=== PATIENT | male | born 1955 ===

== ENCOUNTER 2017-08-15 12:43 | Inpatient (IN) | payer OTHER ==
[2017-08-15 12:43] VITALS: BMI 29.3
--- NOTE | 2017-08-15 13:33 | C.PDOC ---
History Of Present Illness 62 y/o male sent to ED from same day surgery for low hemoglobin. Patient has scheduled Turp by Dr. Juan F Choi and has pre op labs that showed hemoglobin was low. Patient complaints of weakness and has history of blood transfusion in past for low hemoglobin. Patient denies hematuria, blood in stool, dark stool or any other complaints at this time. Time Seen by Provider: 08/15/17 13:12 Chief Complaint (Nursing): Medical Clearance History Per: Patient History/Exam Limitations: no limitations Onset/Duration Of Symptoms: Hrs Current Symptoms Are (Timing): Still Present Past Medical History Reviewed: Historical Data, Nursing Documentation, Vital Signs Vital Signs: Last Vital Signs Temp 99.0 F 08/15/17 22:50 Pulse 60 08/15/17 21:00 Resp 20 08/15/17 21:00 BP 119/67 08/15/17 21:00 Pulse Ox 100 08/15/17 16:33 - Medical History PMH: Anemia, HTN Surgical History: No Surg Hx - [facility] Procedures DESTRUCTION OF LARGE INTESTINE, ENDO (01/02/17) EXCISION OF CECUM, ENDO (01/02/17) EXCISION OF DUODENUM, ENDO, DIAGN (01/02/17) EXCISION OF STOMACH, ENDO, DIAGN (01/02/17) MRI OF OTHER AND UNSPECIFIED SITES (02/21/02) TRANSFUSE NONAUT RED BLOOD CELLS IN PERIPH VEIN, PERC (01/02/17) Family History: States: No Known Family Hx - Social History Hx Alcohol Use: Yes Hx Substance Use: No - Immunization History Hx Tetanus Toxoid Vaccination: No Hx Influenza Vaccination: No Hx Pneumococcal Vaccination: No Review Of Systems Constitutional: Negative for: Fever, Chills Gastrointestinal: Negative for: Nausea, Vomiting Neurological: Positive for: Weakness. Negative for: Numbness, Dizziness Physical Exam - Physical Exam Appears: Non-toxic, No Acute Distress Skin: Warm, Dry, No Rash Head: Atraumatic, Normacephalic Oral Mucosa: Moist Neck: Normal ROM, Supple Cardiovascular: Rhythm Regular Respiratory: Normal Breath Sounds, No Rales, No Rhonchi, No Wheezing Gastrointestinal/Abdominal: Soft, No Tenderness, No Guarding, No Rebound Neurological/Psych: Oriented x3 ED Course And Treatment - Laboratory Results Result Diagrams: 08/15/17 14:09 08/15/17 14:09 O2 Sat by Pulse Oximetry: 100 (RA) Progress Note: Spoke to Dr. Hassan and Dr Boggs. Patient to be admitted to Dr. Boggs service and have 1 unit of packed RBCs Disposition - Disposition Disposition: HOSPITALIZED Disposition Time: 14:50 Condition: FAIR - Clinical Impression Clinical Impression: Anemia, Symptomatic anemia - Scribe Statement The provider has reviewed the documentation as recorded by the Ashokibmichael Myers All medical record entries made by the Ashokibmichael were at my direction and personally dictated by me. I have reviewed the chart and agree that the record accurately reflects my personal performance of the history, physical exam, medical decision making, and the department course for this patient. I have also personally directed, reviewed, and agree with the discharge instructions and disposition.
[2017-08-15 14:14] LABS: BASO # 0.1 K/uL (0.0-0.2); BASO % 0.9 % (0.0-2.0); EOS # 0.2 K/uL (0.0-0.7); EOS % 2.5 % (0.0-4.0); HEMOGLOBIN 7.6 g/dL (12.0-18.0); LYMPH # 1.4 K/uL (1.0-4.3); LYMPH % 21.1 % (20.0-40.0); MEAN CELL VOLUME 73.2 fL (80.0-94.0); MEAN CORPUSCULAR HEMOGLOBIN 22.6 pg (27.0-31.0); MEAN CORPUSCULAR HGB CONC 30.8 g/dL (33.0-37.0); MEAN PLATELET VOLUME 8.9 fL (7.2-11.7); MONO # 0.9 K/uL (0.0-0.8); MONO % 13.6 % (0.0-10.0); NEUT # 4.1 K/uL (1.8-7.0); NEUT % 61.9 % (50.0-75.0); NRBC % 0.1 % (0.0-2.0); RBC 3.38 Mil/uL (4.40-5.90); RED CELL DISTRIBUTION WIDTH 18.6 % (11.5-14.5); WHITE BLOOD COUNT 6.6 K/uL (4.8-10.8)
[2017-08-15 14:21] LABS: PROTHROMBIN TIME 11.7 SECONDS (9.7-12.2)
[2017-08-15 14:25] LABS: ALB/GLOB RATIO 1.3 (1.0-2.1); ALBUMIN 4.3 g/dL (3.5-5.0); CALCIUM 9.5 mg/dl (8.6-10.4)
[2017-08-15 15:57] VITALS: RESP 20
[2017-08-15] MEDS ORDERED: Influenza Vaccine 60 mcg/0.5 mL SYR (4YR UP) IM ONE (21:03)
--- NOTE | 2017-08-15 21:23 | CP.PCM.HP ---
History of Present Illness - History of Present Illness History of Present Illness: Chief complaints: Abnormal hemoglobin HPI: 62-year-old male came to the same day surgery for transurethral resection of prostate by urologist. Patient at that time noted to have low hemoglobin , patient was sent to the emergency room. Patient denies any hematuria, blood in the stools, no dark stools. He does not have any dizziness. He does not have any chest pain. He denies any dizziness, no palpitation noted. Because of abnormal hemoglobin patient was sent to the emergency room, and for possible transfusion. Patient has a history of hypertension, taking medication. In the past patient had a history of anemia. Past medical history: Hypertension, anemia Surgical history: None Allergies: No known drug allergy Personal history: Patient smokes on and off. Denies any alcohol. Patient in the past and had upper endoscopy, colonoscopy. Review of system: No headache or visual symptoms denies any chest pain or shortness of breath. Vital signs reviewed No neck vein distention noted Chest good air entry bilaterally, no wheezing or rales noted CVS regular heart sound, no murmur noted Abdomen soft, nontender. 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 Hemoglobin is 7.6. Otherwise nonspecific Mild elevation of the creatinine noted Assessment and recommendation: 62-year-old male with a history of hypertension now admitted with anemia, mildly symptomatic. We'll transfuse 1 unit, second unit in the morning, after the second unit transfusion patient can be discharged. Patient will follow up as an outpatient with urologist for further treatment. We'll continue to monitor during that transmission will follow the patient Present on Admission - Present on Admission Any Indicators Present on Admission: No History of DVT/PE: No History of Uncontrolled Diabetes: No Urinary Catheter: No Decubitus Ulcer Present: No Past Patient History - Infectious Disease Hx of Infectious Diseases: None - Past Medical History & Family History Past Medical History?: No - Past Social History Smoking Status: Never Smoked - CARDIAC Hx Hypertension: Yes - PULMONARY Hx Respiratory Disorders: No - NEUROLOGICAL Hx Neurological Disorder: No - HEENT Hx HEENT Problems: No - RENAL Hx Chronic Kidney Disease: No - ENDOCRINE/METABOLIC Hx Endocrine Disorders: No - HEMATOLOGICAL/ONCOLOGICAL Hx Anemia: Yes - INTEGUMENTARY Hx Dermatological Problems: Yes Other/Comment: pt has multiple round brown spots on both lower legs. pt states they are a result of childhood illness. no broken or draining areas - MUSCULOSKELETAL/RHEUMATOLOGICAL Hx Musculoskeletal Disorders: No Hx Falls: No - GASTROINTESTINAL Hx Gastrointestinal Disorders: No - GENITOURINARY/GYNECOLOGICAL Hx Genitourinary Disorders: No - PSYCHIATRIC Hx Substance Use: No - SURGICAL HISTORY Other/Comment: Colonoscopy - ANESTHESIA Hx Anesthesia: Yes Hx Anesthesia Reactions: No Hx Malignant Hyperthermia: No Meds Allergies/Adverse Reactions: Allergies Allergy/AdvReac Type Severity Reaction Status Date / Time No Known Allergies Allergy Verified 08/15/17 13:07 Results - Vital Signs Recent Vital Signs: Last Vital Signs Temp 98.9 F 08/15/17 21:00 Pulse 60 08/15/17 21:00 Resp 20 08/15/17 21:00 BP 119/67 08/15/17 21:00 Pulse Ox 100 08/15/17 16:33 - Labs Result Diagrams: 08/15/17 14:09 08/15/17 14:09 Labs: Laboratory Results - last 24 hr 08/15/17 08/15/17 08/15/17 14:09 14:09 14:09 WBC 6.6 RBC 3.38 L Hgb 7.6 L Hct 24.8 L MCV 73.2 L MCH 22.6 L MCHC 30.8 L RDW 18.6 H Plt Count 270 MPV 8.9 Neut % (Auto) 61.9 Lymph % (Auto) 21.1 [place] % (Auto) 13.6 H Eos % (Auto) 2.5 Baso % (Auto) 0.9 Neut # (Auto) 4.1 Lymph # (Auto) 1.4 [place] # (Auto) 0.9 H Eos # (Auto) 0.2 Baso # (Auto) 0.1 PT 11.7 INR 1.0 APTT 28 Sodium 139 Potassium 4.9 Chloride 102 Carbon Dioxide 25 Anion Gap 17 BUN 23 H Creatinine 1.7 H Est GFR ( Amer) 49 Est GFR (Non-Af Amer) 41 Random Glucose 111 H Calcium 9.5 Total Bilirubin 0.6 AST 20 ALT 33 Alkaline Phosphatase 115 Total Protein 7.6 Albumin 4.3 Globulin 3.4 Albumin/Globulin Ratio 1.3 Blood Type Antibody Screen 08/15/17 14:09 WBC RBC Hgb Hct MCV MCH MCHC RDW Plt Count MPV Neut % (Auto) Lymph % (Auto) [place] % (Auto) Eos % (Auto) Baso % (Auto) Neut # (Auto) Lymph # (Auto) [place] # (Auto) Eos # (Auto) Baso # (Auto) PT INR APTT Sodium Potassium Chloride Carbon Dioxide Anion Gap BUN Creatinine Est GFR ( Amer) Est GFR (Non-Af Amer) Random Glucose Calcium Total Bilirubin AST ALT Alkaline Phosphatase Total Protein Albumin Globulin Albumin/Globulin Ratio Blood Type A POSITIVE Antibody Screen Negative
[2017-08-15] MEDS ORDERED: Pneumococcal 23-Valent Vaccine IM ONE (22:45)
[2017-08-16 07:37] LABS: BASO # 0.1 K/uL (0.0-0.2); BASO % 1.7 % (0.0-2.0); EOS # 0.3 K/uL (0.0-0.7); EOS % 4.5 % (0.0-4.0); LYMPH # 1.2 K/uL (1.0-4.3); LYMPH % 20.1 % (20.0-40.0); MEAN CELL VOLUME 74.6 fL (80.0-94.0); MEAN CORPUSCULAR HEMOGLOBIN 23.8 pg (27.0-31.0); MEAN PLATELET VOLUME 8.8 fL (7.2-11.7); MONO # 0.7 K/uL (0.0-0.8); MONO % 12.5 % (0.0-10.0); NEUT # 3.5 K/uL (1.8-7.0); NEUT % 61.2 % (50.0-75.0); RBC 4.32 Mil/uL (4.40-5.90); RED CELL DISTRIBUTION WIDTH 18.5 % (11.5-14.5); WHITE BLOOD COUNT 5.8 K/uL (4.8-10.8)
[2017-08-16 07:46] LABS: HEMOGLOBIN 10.3 g/dL (12.0-18.0)
[2017-08-16 07:50] LABS: ALB/GLOB RATIO 1.2 (1.0-2.1); ALBUMIN 3.8 g/dL (3.5-5.0); CALCIUM 8.9 mg/dl (8.6-10.4)
[2017-08-16] MEDS ORDERED: Pantoprazole 40 mg EC Tab PO SCH (10:00)
--- NOTE | 2017-08-16 11:49 | CARD ---
APPROVED REPORT EKG Measurement Heart [id number] <Conclusion> Normal sinus rhythm Moderate voltage criteria for LVH, may be normal variant Marked T wave abnormality, consider anterolateral ischemia Prolonged QT Abnormal ECG
--- NOTE | 2017-08-16 16:23 | CP.PCM.PN ---
Subjective - Date & Time of Evaluation Date of Evaluation: 08/16/17 Time of Evaluation: 16:23 - Subjective Subjective: Alert, orientedx3, denies pain. Hanna intact with leg bag. Objective - Vital Signs/Intake and Output Vital Signs (last 24 hours): Temp Pulse Resp BP Pulse Ox 98.0 F 50 L 20 130/72 100 08/16/17 08:00 08/16/17 08:00 08/16/17 08:00 08/16/17 08:00 08/16/17 08:00 Intake and Output: 08/16/17 08/16/17 06:59 18:59 Intake Total 1195 445 Output Total 550 1500 Balance 645 -1055 - Medications Medications: Current Medications Docusate Sodium (Colace) 100 mg PO BID PRN PRN Reason: Constipation Last Admin: 08/16/17 09:44 Dose: 100 mg Ferrous Sulfate (Feosol) 325 mg PO TID [facility] Last Admin: 08/16/17 14:59 Dose: 325 mg Lisinopril (Zestril) 20 mg PO DAILY [facility] Last Admin: 08/16/17 09:44 Dose: 20 mg Pantoprazole Sodium (Protonix Ec Tab) 40 mg PO DAILY [facility] Last Admin: 08/16/17 09:44 Dose: 40 mg - Labs Labs: 08/16/17 07:21 08/16/17 07:21 PT 11.7 SECONDS (9.7-12.2) 08/15/17 14:09 INR 1.0 08/15/17 14:09 APTT 28 SECONDS (21-34) 08/15/17 14:09 Assessment and Plan - Assessment and Plan (Free Text) Assessment: Patient admitted with low hemoglobin for blood transfusion prior to TURP by DR Choi. Received 2 units of PRBC yesterday, hemoglobin 10.2 today. hanna draining well. Discussed with DR Boggs, plan to discharge home today. Advised to follow up with DR Choi in the office in 1 week to plan for TURP.
[2017-08-16 17:25] VITALS: BP 127/66; PULSE 74; TEMP 98.9; O2SAT 98
--- NOTE | 2017-08-16 23:58 | CP.PCM.DIS ---
Provider - Provider Date of Admission: 08/15/17 14:52 Attending physician: Mercedez Boggs MD Time Spent in preparation of Discharge (in minutes): 45 Hospital Course - Lab Results Lab Results: Most Recent Lab Values WBC 5.8 K/uL (4.8-10.8) 08/16/17 07:21 RBC 4.32 Mil/uL (4.40-5.90) L 08/16/17 07:21 Hgb 10.3 g/dL (12.0-18.0) L D 08/16/17 07:21 Hct 32.2 % (35.0-51.0) L 08/16/17 07:21 MCV 74.6 fL (80.0-94.0) L 08/16/17 07:21 MCH 23.8 pg (27.0-31.0) L 08/16/17 07:21 MCHC 32.0 g/dL (33.0-37.0) L 08/16/17 07:21 RDW 18.5 % (11.5-14.5) H 08/16/17 07:21 Plt Count 243 K/uL (130-400) 08/16/17 07:21 MPV 8.8 fL (7.2-11.7) 08/16/17 07:21 Neut % (Auto) 61.2 % (50.0-75.0) 08/16/17 07:21 Lymph % (Auto) 20.1 % (20.0-40.0) 08/16/17 07:21 [place] % (Auto) 12.5 % (0.0-10.0) H 08/16/17 07:21 Eos % (Auto) 4.5 % (0.0-4.0) H 08/16/17 07:21 Baso % (Auto) 1.7 % (0.0-2.0) 08/16/17 07:21 Neut # (Auto) 3.5 K/uL (1.8-7.0) 08/16/17 07:21 Lymph # (Auto) 1.2 K/uL (1.0-4.3) 08/16/17 07:21 [place] # (Auto) 0.7 K/uL (0.0-0.8) 08/16/17 07:21 Eos # (Auto) 0.3 K/uL (0.0-0.7) 08/16/17 07:21 Baso # (Auto) 0.1 K/uL (0.0-0.2) 08/16/17 07:21 PT 11.7 SECONDS (9.7-12.2) 08/15/17 14:09 INR 1.0 08/15/17 14:09 APTT 28 SECONDS (21-34) 08/15/17 14:09 Sodium 133 mmol/L (132-148) 08/16/17 07:21 Potassium 4.3 mmol/L (3.6-5.2) 08/16/17 07:21 Chloride 104 mmol/L (98-107) 08/16/17 07:21 Carbon Dioxide 21 mmol/L (22-30) L 08/16/17 07:21 Anion Gap 13 (10-20) 08/16/17 07:21 BUN 24 mg/dL (9-20) H 08/16/17 07:21 Creatinine 1.5 mg/dL (0.8-1.5) 08/16/17 07:21 Est GFR ( Amer) 57 08/16/17 07:21 Est GFR (Non-Af Amer) 47 08/16/17 07:21 Random Glucose 98 mg/dL (75-110) 08/16/17 07:21 Calcium 8.9 mg/dl (8.6-10.4) 08/16/17 07:21 Total Bilirubin 0.4 mg/dL (0.2-1.3) 08/16/17 07:21 AST 28 U/L (17-59) 08/16/17 07:21 ALT 26 U/L (21-72) 08/16/17 07:21 Alkaline Phosphatase 117 U/L (38-126) 08/16/17 07:21 Total Protein 6.9 g/dL (6.3-8.3) 08/16/17 07:21 Albumin 3.8 g/dL (3.5-5.0) 08/16/17 07:21 Globulin 3.2 gm/dL (2.2-3.9) 08/16/17 07:21 Albumin/Globulin Ratio 1.2 (1.0-2.1) 02/21/18 07:21 Blood Type A POSITIVE 08/15/17 14:09 Antibody Screen Negative 08/15/17 14:09 - Hospital Course Hospital Course: Chief complaints: Abnormal hemoglobin HPI: 62-year-old male came to the same day surgery for transurethral resection of prostate by urologist. Patient at that time noted to have low hemoglobin , patient was sent to the emergency room. Patient denies any hematuria, blood in the stools, no dark stools. He does not have any dizziness. He does not have any chest pain. He denies any dizziness, no palpitation noted. Because of abnormal hemoglobin patient was sent to the emergency room, and for possible transfusion. Patient has a history of hypertension, taking medication. In the past patient had a history of anemia. Past medical history: Hypertension, anemia Surgical history: None Allergies: No known drug allergy Personal history: Patient smokes on and off. Denies any alcohol. Patient in the past and had upper endoscopy, colonoscopy. Review of system: No headache or visual symptoms denies any chest pain or shortness of breath. Vital signs reviewed No neck vein distention noted Chest good air entry bilaterally, no wheezing or rales noted CVS regular heart sound, no murmur noted Abdomen soft, nontender. 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 Hemoglobin is 7.6. Otherwise nonspecific Mild elevation of the creatinine noted Assessment and recommendation: 62-year-old male with a history of hypertension now admitted with anemia, mildly symptomatic. We'll transfuse 1 unit, second unit in the morning, after the second unit transfusion patient can be discharged. Patient will follow up as an outpatient with urologist for further treatment. We'll continue to monitor during that transmission will follow the patient Patient received 2 units of blood transfusion. He had extensive workup in the past. Patient is critically stable. Discussion hemoglobin is improving, more than 10, he will be discharged home, he will follow up with the urologist for an outpatient procedure. Continue current treatment. Follow-up with Dr. Valenzuela in his office. Discharge Plan - Follow Up Plan Condition: FAIR Disposition: HOME/ ROUTINE Instructions: Anemia Caused by Low Iron, Adult (DC) Additional Instructions: Discharge home as per DR Boggs f/u with in the office f/u with PMD in 1 week Referrals: Mercedez Boggs MD [Staff Provider] - Juan F Choi MD [Staff Provider] -
== END 2017-08-16 18:23 | disposition home or self-care (01) | DRG 395 ==
LOC: C.ER 12:43 → C.9E 14:52 → C.3T 15:42
PROVIDERS: ADMIT Internal Medicine; ATTEND Internal Medicine
DX: D64.9 Anemia, unspecified (principal); F17.200 Nicotine dependence, unspecified, uncomplicated; I10 Essential (primary) hypertension

== ENCOUNTER 2017-12-26 09:02 | Observation (INO) | payer SELFPAY ==
[2017-12-26 09:34] VITALS: BMI 30.9
--- NOTE | 2017-12-26 10:13 | RAD ---
HISTORY: STAT O.R. CXR DONE IN P.A.T COMPARISON: No prior. TECHNIQUE: Chest PA and lateral FINDINGS: LUNGS: No infiltrate. Old calcified granuloma in left lower lobe PLEURA: No significant pleural effusion identified. No pneumothorax apparent. CARDIOVASCULAR: Normal. OSSEOUS STRUCTURES: No significant abnormalities. VISUALIZED UPPER ABDOMEN: Normal. OTHER FINDINGS: None. IMPRESSION: No active disease.
[2017-12-26 10:17] LABS: BASO # 0.1 K/uL (0.0-0.2); BASO % 1.3 % (0.0-2.0); EOS # 0.2 K/uL (0.0-0.7); EOS % 2.4 % (0.0-4.0); HEMOGLOBIN 11.7 g/dL (12.0-18.0); LYMPH # 1.3 K/uL (1.0-4.3); LYMPH % 18.5 % (20.0-40.0); MEAN CELL VOLUME 87.9 fL (80.0-94.0); MEAN PLATELET VOLUME 9.1 fL (7.2-11.7); MONO # 0.9 K/uL (0.0-0.8); MONO % 11.9 % (0.0-10.0); NEUT # 4.8 K/uL (1.8-7.0); NEUT % 65.9 % (50.0-75.0); RBC 4.02 Mil/uL (4.40-5.90); RED CELL DISTRIBUTION WIDTH 16.2 % (11.5-14.5); WHITE BLOOD COUNT 7.2 K/uL (4.8-10.8)
[2017-12-26 10:25] LABS: PROTHROMBIN TIME 11.1 SECONDS (9.7-12.2)
[2017-12-26 10:29] LABS: ALB/GLOB RATIO 1.5 (1.0-2.1); ALBUMIN 4.5 g/dL (3.5-5.0); ALT/SGPT 35 U/L (21-72); AST/SGOT 24 U/L (17-59); BLOOD UREA NITROGEN 21 mg/dL (9-20); CALCIUM 9.2 mg/dl (8.6-10.4); GFR AFRICAN-AMERICAN > 60; GFR NON-AFRICAN AMERICAN 51
[2017-12-26] MEDS ORDERED: Gentamicin 160 MG in Sodium Chloride 0.9% 100 ML IVPB ONE (13:13)
[2017-12-26] MEDS ORDERED: cefTRIAXone IV 1 gm in Dextros 0 ML IVPB ONE (13:28)
[2017-12-26] MEDS ORDERED: Lidocaine 2% Jelly (Uro-Jet) ONE ×2 (13:29→13:53)
[2017-12-26] MEDS ORDERED: cefTRIAXone IV 1 gm in Dextros 50 ML IVPB ONE (13:53)
[2017-12-26] MEDS ORDERED: Propofol 10 mg/ml Inj (20 ML) ONE (14:31)
[2017-12-26] MEDS ORDERED: Oxycodone/Acetaminophen 5/325 mg Tab PO PRN (15:30)
[2017-12-26] MEDS ORDERED: HYDROmorphone 0.5 mg/0.5 ml ISec IVP PRN (15:37)
[2017-12-26] MEDS: Ciprofloxacin 400mg/200ml D5W 400 MG/200 ML BAG IVPB SCH (16:00)
[2017-12-26 18:40] VITALS: RESP 20
[2017-12-27] MEDS: Ciprofloxacin 400mg/200ml D5W 400 MG/200 ML BAG IVPB SCH (04:17)
[2017-12-27] MEDS ORDERED: Pneumococcal 23-Valent Vaccine IM ONE (15:30)
[2017-12-27 16:06] VITALS: BP 169/89; PULSE 90; TEMP 98.3; O2SAT 100
--- NOTE | 2017-12-27 21:06 | CARD ---
APPROVED REPORT EKG Measurement Heart [id number] [place] [id number] <Conclusion> Sinus bradycardia Cannot rule out Inferior infarct, age undetermined Marked T wave abnormality, consider anterolateral ischemia Abnormal ECG
--- NOTE | 2017-12-28 11:54 | PN ---
DATE: 12/28/2017 See history and physical and operative note. SUBJECTIVE: The patient is doing well overall. The urine remains relatively clear. The plan is as follows: I am going to stop the CBI. We are going to discharge home. The patient came in with Lyon catheter. We are going to discharge him with the Lyno catheter and plan to remove it in a couple of days in the office and then further plans will be to follow up. The patient is being explained in great detail with Malay translation, home care for the catheter, the importance of the antibiotics use. Further plans will follow. Juan Carlos Choi MD
--- NOTE | 2017-12-29 07:32 | OP ---
PROCEDURE DATE: 12/26/2017 UROLOGY OPERATIVE REPORT PREOPERATIVE DIAGNOSES: Urinary retention, recurrent episodes; hematuria; and large prostate. POSTOPERATIVE DIAGNOSES: Urinary retention, recurrent episodes; hematuria; and large prostate. PROCEDURES: Transurethral resection of the prostate using electrocautery. SPECIMENS SENT: Prostate chips. COMPLICATIONS: There were no complications. BLOOD LOSS: Less than 25 mL. UROLOGY OPERATIVE FINDINGS: 1. Normal anterior urethra. 2. No strictures on reviewing and it was visually occlusive about 2 to 3 cm. 3. Normal ureteral orifice. At the termination of procedure,the patient is wide open from the veru. The veru is grossly intact. Ureteral orifices are grossly intact. When we were near the ureteral orifice, the bladder neck is nicely wide open. The patient has an indwelling Lyon catheter with about 60 mL in the balloon, with mild retraction. INDICATIONS: Please see history and physical for details, but in brief, this is a very pleasant gentleman, presented to me with a catheter with retention looking for transurethral resection of the prostate. This has been recommended by after he had multiple voiding trials. We discussed repeating voiding trials, he was not enthusiastic. I explained he is here now for the above procedure. I explained the risks and the expectations of retrograde ejaculation. I explained the risk of the possibilities of not being able to void afterwards. I explained scarring. I explained the many thing. I explained further diagnostic studies, urodynamics, the procedure, in fact, that he is amenable. The prostate is amenable to transurethral resection of the prostate and that is what we did. The determinations due to the patient looks nicely wide open, the veru and the ureteral orifice intact. There were no complications. DESCRIPTION OF PROCEDURE: After obtaining informed consent, the patient was placed on the table. Routine monitor was placed. Timeout was called to confirm the patient and positioning. Antibiotic prophylaxis was used with both gentamicin and Rocephin. The procedure continued with the removal of the Lyon catheter, actually difficulty of the balloon was could not be deflated in the standard fashion with a syringe. It is a very exhaustive intervention. At this point, I removed the balloon by hiding the catheter and then all the water leaked out. Sometimes the valve get leaky (if not, I had other plans to try a wire to deflect the balloon). Once we were doing a cystoscope, even if we broke the balloon inside, we would be able to retrieve it without difficulty. Remarkably when we cut it, it was just the valve problem and the water leaked out and the catheter pulled out easily. Now, we introduced the cystoscope and the patient was prepped in usual sterile fashion. The cystoscope was introduced via the urethra, we went in with the inspection of the scope. We now inspected the bladder carefully, we identified the ureteral orifices. We identified the bladder neck, we identified the visually occlusive prostate, highly mobile, hypertrophied. We identified the ureteral ____. We now began our resection. We started the setting for 180 and 80. We began along the floor which was 5 and 7. We went up gently, carefully, slowly, meticulously to open upon the bladder neck. We now turned our attention between 7 and 11, then we turned our attention to bladder 1, and we keep within portion by portion within the prostate from the bladder neck on backwards. More distally towards the veru, we kept inspecting while we were . Once we did this and it was nicely widely open, we turned our attention between 11 and 1. Again, we identified out landmarks. Overall, we did such. There was no complications. The patient is nicely wide open, you can see the multiple pictures on the chart. We had achieved good hemostasis as well. A deep spot anywhere required, we were able to cauterize any bleeding noted. At this point, we removed the scope. I started taking a picture with the camera to show the patient's flow was tremendously slowing. I inserted a Lyon catheter via the urethra for mild retraction with about 50 mL in the balloon. Overall, the patient tolerated the procedure well without complications. ADDENDUM Based on the patient's history and based on the nature of the procedure today and the patient's overall general status, we are going to admit him to the hospital for a day of observation and then further plans will follow. Juan Carlos Choi MD
--- NOTE | 2017-12-29 07:42 | HP ---
UROLOGY ADMISSION HISTORY AND PHYSICAL. REASON FOR ADMISSION: Treatment for transurethral resection of the prostate. HISTORY OF PRESENT ILLNESS: Mr. Dg Velarde is a very pleasant gentleman, who had a cath. He is 62 years old. He is having an indwelling Lyon catheter for urinary retention. He had failed multiple voiding trials prior to . We had discussed options. He had come in looking for a transurethral resection of the prostate. We discussed options, we discussed penile lability, we discussed open prostatectomy, we discussed cystoscopy and transurethral resection of the prostate with electrocautery. After all the various options for various reasons, the patient is now being brought in today for a transurethral resection of the prostate. I do want to mention, I previously admitted the patient back a few months ago. We had arranged for a transurethral resection of the prostate more urgently, then several months delay, but the patient has had difficulty yet to obtain medical clearance and for various reasons it took a severely long time from his end to be scheduled for today's procedure. Obtaining medical clearance was one issue and having sy care, the patient does not have insurance and him obtaining sy care was the second issue. The patient, after all this, he is now here. There is a medical clearance on the chart from Dr. Boggs. The patient has been voiding today for transurethral resection of the prostate with the standard electrocautery. Through the translation phone, I explained the patient all the risks, benefits, and treatment alternatives. PAST MEDICAL HISTORY/PAST SURGICAL HISTORY: Listed on the chart. Underlying hypertension. No history of an [place]. The medical clearance is noted. PAST SURGICAL HISTORY: As noted. MEDICATIONS: See the chart. ALLERGIES: NONE. REVIEW OF SYSTEMS: As listed above. No weight loss, chest pain, shortness of breath, or the like. PHYSICAL EXAMINATION: GENERAL: A well-nourished male in no apparent distress. VITAL SIGNS: Within normal limits, listed in the chart. NECK: No cervical or axillary lymphadenopathy. CARDIOPULMONARY: Heart has S1, S2. LUNGS: Clear. ABDOMEN: Overall soft. : He has a normal phallus without discharge. Lyon catheter in place. There is some debris and on the outside. See the plan listed below. No testicular mass. RECTAL: A 30 gm prostate, soft and smooth. LABORATORY DATA: See chart. DIAGNOSES: Urinary retention, hematuria, and voiding dysfunction. ASSESSMENT AND PLAN: A very pleasant 62-year-old gentleman, who has failed multiple voiding trials. They were apparently given before I met the patient. In fact, when I met him, I discussed options, trying to repeat those voiding trials and, perhaps, treatments with medical therapy. He is only 62 years old. He was not enthusiastic to allow this. He has been recommended for a surgical intervention. We did discuss option surgery, we discussed transurethral resection of the prostate, which will be carried on. I explained to him that when we do our cystoscopy, depending on the urology operative findings, if it is amenable to a TURP, which it sounds like it will be, we are going to proceed with a cystoscopy,TURP. If not, we are just going to complete the procedure, insert a Lyon catheter, and discuss the options with the patient. Given his long indwelling Lyon catheter and the infestations, we are going to increase our general antibiotic prophylaxis. We are going to use both Rocephin and gentamicin and then further plan to follow up. The plan is as follows: 1. Admit to my service. 2. Plan for transurethral resection of the prostate. 3. Antibiotic prophylaxis. I do want to mention in careful detail and that what I explained to the patient both in the office on multiple visits and I explained to him again today with a fire loss prevention engineer that the expectations are that the majority of patients ask for this procedure called transurethral resection of the prostate that they do not have fluid or have any orgasm. I explained retrograde ejaculation. I explained to him in detail, and I explained to have an expectation. Sometimes the person might still ejaculate, but more likely they will not. I also explained in this case that we have not done other studies that we very often do, urodynamic study which is mostly because of the patient's insurance and also because of his noncompliance and this is what he wants done. I think it is a reasonable standard of care, he has no expected neurologic issues and, therefore, although he is only 62 years old, it could be all explained by the prostate. At this point, we are going to plan to proceed with the transurethral resection of the prostate. ADDENDUM: See the operative findings. We did do a transurethral resection of the prostate. The patient did have a visually occlusive 2-3 cm prostate. At the termination of that procedure, the patient is wide open. We expect a good result. See the operative report. Juan Carlos Choi MD
[2017-12-29] MEDS ORDERED: Pneumococcal 23-Valent Vaccine IM ONE (10:00)
== END 2017-12-27 16:38 | disposition home or self-care (01) ==
LOC: C.OPSURG 09:02 → C.9S 15:29 → C.3T 17:22
PROVIDERS: ADMIT Urology; ATTEND Urology
DX: N40.1 Benign prostatic hyperplasia with lower urinary tract symptoms (principal); R33.8 Other retention of urine; R31.9 Hematuria, unspecified; I10 Essential (primary) hypertension; D64.9 Anemia, unspecified; R00.1 Bradycardia, unspecified
CPT/HCPCS: 36415; 52601; 71046; 80053; 85025; 85610; 85730; 86850; 86900; 88305; 90471; 90732; 93005; G0378; J0696; J0744; J1170; J1580; J2001; J2405; J2704; J3010